=== PATIENT | female | born 1950 | race Caucasian/White ===

== ENCOUNTER 2019-04-17 06:47 | Day surgery (SDC) | payer MEDICARE, BC ==
[~2019-04-17 06:47] MED LIST: Lactated Ringers 1,000 ML IV SCH; Sodium Chloride 0.9% 10 ML Syringe FLUSH PRN
[2019-04-17] MEDS ORDERED: Propofol 200 MG/20 ML SDV IV ONE (06:48)
--- NOTE | 2019-04-17 08:24 | PCM.OPNOTE ---
- General Post-Op/Procedure Note Date of Surgery/Procedure: 04/17/19 Operative Procedure(s): c scope with bx Findings: normal colon mucosa Pre Op Diagnosis: hx of colitis with recent flair Post-Op Diagnosis: Same. normal colonoscopy Anesthesia Technique: MAC Primary Surgeon: Todd Rico Anesthesia Provider: Joe Raymond Pathology: random colon bx every 10 cm Complications: None Condition: Good Free Text/Narrative:: see dictation
--- NOTE | 2019-04-18 09:11 | OR ---
DATE OF OPERATION: 04/17/2019 SURGEON: Todd Rico MD PROCEDURE PERFORMED: Colonoscopy with random colon biopsies. PREOPERATIVE DIAGNOSIS: Personal history of colitis with flare. POSTOPERATIVE DIAGNOSIS: Normal colon. INDICATIONS FOR PROCEDURE: This is a 68-year-old white female, who has a known history of colitis, recently had a flare, and was due for a followup colonoscopy in any event, and was offered and accepted same. DESCRIPTION OF OPERATION: After an excellent IV sedation was administered, digital rectal exam was performed. This was unremarkable. The flexible colonoscope was inserted and advanced to the cecum. Prep was excellent. The following findings were noted. Ascending colon is unremarkable. Random biopsies were taken approximately every 10 cm. Transverse colon, unremarkable. Random biopsies were taken and submitted. Descending colon, unremarkable. Random biopsies approximately every 10 cm. Sigmoid, rectum, random biopsies every 10 cm with the mucosa completely normal. Results by letter. /[id number] /MODL
== END 2019-04-17 09:12 | disposition home or self-care (01) ==
LOC: FB.SDS 06:47
PROVIDERS: ATTEND Surgery
DX: K52.9 Noninfective gastroenteritis and colitis, unspecified (principal); K21.9 Gastro-esophageal reflux disease without esophagitis; D64.9 Anemia, unspecified; G25.81 Restless legs syndrome; G43.909 Migraine, unspecified, not intractable, without status migrainosus; Z88.8 Allergy status to other drugs, medicaments and biological substances; Z85.51 Personal history of malignant neoplasm of bladder; Z88.5 Allergy status to narcotic agent; Z91.048 Other nonmedicinal substance allergy status; Z91.09 Other allergy status, other than to drugs and biological substances; Z79.51 Long term (current) use of inhaled steroids; Z79.891 Long term (current) use of opiate analgesic; Z79.899 Other long term (current) drug therapy
CPT/HCPCS: 00812-QZ; 88305; J2704; J7120

== ENCOUNTER 2024-05-28 06:42 | Day surgery (SDC) | payer MEDICARE, BC ==
[2024-05-28] MEDS ORDERED: Lidocaine 2% 100 MG/5 ML Syringe IVPUSH ONE (06:43)
[2024-05-28] MEDS ORDERED: Propofol 200 MG/20 ML SDV IV ONE (06:43)
[2024-05-28] MEDS ORDERED: Ondansetron 4 MG/2 ML SDV IVPUSH ONE (06:43)
[2024-05-28] MEDS ORDERED: Sodium Chloride 0.9% 10 ML Syringe FLUSH PRN (06:45)
[2024-05-28] MEDS: Lactated Ringers 1,000 ML IV SCH (07:51)
[2024-05-28] MEDS: Simethicone Drops 40 MG/0.6 ML 30 ML Bottle ONE (08:01)
== END 2024-05-28 09:59 | disposition home or self-care (01) ==
LOC: FB.SDS 06:42
PROVIDERS: ATTEND Surgery
DX: K52.9 Noninfective gastroenteritis and colitis, unspecified (principal); K21.9 Gastro-esophageal reflux disease without esophagitis
CPT/HCPCS: 00811; 45380; 88305; 99100; A9270; J2405; J2704; J7120